=== PATIENT | female | born 1995 | race Caucasian/White ===

== ENCOUNTER 2021-02-04 11:41 | Emergency (ER) | payer SELFPAY ==
[~2021-02-04] VITALS: Ht 152.4 cm; Wt 84.4 kg
[2021-02-04 12:09] VITALS: BP 127/80
== END 2021-02-04 12:07 | disposition home or self-care (01) ==
LOC: ER 12:00
DX: M94.0 Chondrocostal junction syndrome [Tietze] (principal); R20.0 Anesthesia of skin
CPT/HCPCS: 93005; 99282

== ENCOUNTER 2021-06-07 12:40 | Emergency (ER) | payer OTHER ==
[~2021-06-07] VITALS: Ht 152.4 cm; Wt 84.4 kg
== END 2021-06-07 14:26 | disposition home or self-care (01) ==
LOC: ER 12:44
DX: M94.0 Chondrocostal junction syndrome [Tietze] (principal); S44.02XA Injury of ulnar nerve at upper arm level, left arm, initial encounter
CPT/HCPCS: 93005; 99284

== ENCOUNTER 2024-03-23 14:02 | Emergency (ER) | payer SELFPAY ==
[~2024-03-23] VITALS: Ht 152.4 cm; Wt 84.4 kg
[~2024-03-23 14:02] MED LIST: CLINDAMYCIN HC300 MG PO; KETOROLAC TROME10 MG PO
[2024-03-23 14:11] VITALS: PULSE 106; RESP 17; TEMP 98.7; O2SAT 99
[2024-03-23] MEDS ORDERED: CLINDAMYCIN HC150 MG PO (14:52)
== END 2024-03-23 14:59 | disposition home or self-care (01) ==
LOC: ER 14:10
DX: K08.89 Other specified disorders of teeth and supporting structures (principal); K02.9 Dental caries, unspecified
CPT/HCPCS: 99282

== ENCOUNTER 2024-06-26 18:13 | Emergency (ER) | payer SELFPAY ==
[~2024-06-26] VITALS: Ht 152.4 cm; Wt 86.2 kg
[~2024-06-26 18:13] MED LIST changes: +CLINDAMYCIN HC150 MG PO
[2024-06-26 18:31] VITALS: PULSE 101; RESP 16; TEMP 98.1; O2SAT 100
[2024-06-26] MEDS ORDERED: CYCLOBENZAPRINE5 MG PO (18:43)
[2024-06-26] MEDS ORDERED: MEDROL4 M2 PO (18:43)
== END 2024-06-26 18:57 | disposition home or self-care (01) ==
LOC: ER 18:34
DX: M25.512 Pain in left shoulder (principal); S46.812A Strain of other muscles, fascia and tendons at shoulder and upper arm level, left arm, initial encounter; G56.02 Carpal tunnel syndrome, left upper limb; J45.909 Unspecified asthma, uncomplicated; F41.9 Anxiety disorder, unspecified
CPT/HCPCS: 99283